=== PATIENT | male | born 1955 | race Asian ===

== ENCOUNTER → 2024-10-09 | Day surgery (SDC) | payer MEDICARE, MEDICAID, SELFPAY ==
--- NOTE | 2024-10-08 06:22 | EKG_ITS ---
[facility] Test Date: 2024-10-08 Pat Name: MAGGIE GOODWIN Department: Room: - Gender: Male Line Producer: HALINA : 1955 Requested By: Denny Haider Order Number: [id number] Reading MD: Denny Haider Measurements Intervals [place] Rate: 65 P: 68 MT: 168 QRS: 71 QRSD: 91 T: 55 QT: 346 QTc: 360 Interpretive Statements SINUS RHYTHM No previous ECG available for comparison /store/S0/[id number]/ecg/[id number].pdf
[2024-10-08 09:17] VITALS: BMI 30.2
[2024-10-08 09:42] LABS: Collection Type, Urine Clean Catch
[2024-10-08 10:00] LABS: Basophils # (Auto) 0.1 Thou/mm3 (0.0-0.2); Basophils % (Auto) 1 % (0-2.5); Eosinophils # (Auto) 0.3 Thou/mm3 (0.0-0.5); Eosinophils % (Auto) 5 % (0-10); Hematocrit 38.6 % (41.0-53.0); Hemoglobin 14.1 g/dL (13.5-16.0); Immature Granulocytes % (Auto) 2 % (0-0); Immature Granulocytes Auto 0.13 Thou/mm3 (0.00-0.00); Lymphocytes # (Auto) 1.9 Thou/mm3 (1.0-4.8); Lymphocytes % (Auto) 26 % (10-50); Mean Corpuscular HGB Conc 36.5 g/dl (31.0-37.0); Mean Corpuscular Hemoglobin 32.5 pg (25.0-35.0); Mean Corpuscular Volume 89 fL (80-100); Monocytes # (Auto) 0.7 Thou/mm3 (0.0-0.8); Monocytes % (Auto) 9 % (0-12); Neutrophils # (Auto) 4.3 Thou/mm3 (1.8-7.7); Neutrophils % (Auto) 58 % (37-80); Nucleated Red Blood Cell % 0 /100 WBC (0); Platelet Count 172 Thou/mm3 (140-440); RDW Standard Deviation 41.1 fL (35.1-43.9); Red Blood Count 4.34 Miln/mm3 (4.50-5.90); White Blood Count 7.5 Thou/mm3 (3.8-10.6)
[2024-10-08 10:01] LABS: Bilirubin,Urine Negative (Negative); Blood,Urine Negative (Negative); Clarity,Urine Clear (Clear/Hazy); Color,Urine Yellow (Lt Yel-Yel); Glucose, Urine Negative (Negative); Hyaline Casts,Urine < 1 /hpf (0-1); Ketones,Urine Negative (Negative); Leukocyte Esterase,Urine Negative (Negative); Nitrite,Urine Negative (Negative); Protein,Urine 2+ (Neg - Trace); RBC,Urine 3 /hpf (0-3); Specific Gravity,Urine 1.022 (1.001-1.035); Squamous Epithelial Cell,Urine < 1 /hpf (0-5); Urobilinogen,Urine Negative mg/dL (0.0-1.0); WBC,Urine 1 /hpf (0-5)
[2024-10-08 10:21] LABS: Alanine Aminotransferase 33 U/L (10-49); Albumin, Serum 4.5 gm/dL (3.4-4.8); Albumin/Globulin Ratio 1.7 (1.2-2.2); Alkaline Phosphatase 64 U/L (46-116); Anion Gap 12 (7-16); Aspartate Amino Transferase 35 U/L (0-34); BUN/Creatinine Ratio 11 Ratio (12-20); Bilirubin,Total 0.5 mg/dL (0.3-1.2); Blood Urea Nitrogen 13 mg/dL (9-23); Calcium 8.9 mg/dL (8.3-10.6); Calcium (Corrected) 8.9 mg/dL (8.5-10.1); Carbon Dioxide 23.4 mMol/L (20.0-31.0); Chloride 106 mMol/L (98-107); Creatinine (Component) 1.2 mg/dL (0.6-1.3); Estimated Creatinine Clearance 53.4 mL/min (>60); Globulin 2.6 gm/dL (2.3-3.5); Glucose 155 mg/dL (74-106); Osmolality,Calculated 284 (275-295); Potassium 4.1 mMol/L (3.4-5.1); Sodium 141 mMol/L (136-145); Total Protein 7.1 gm/dL (5.7-8.2); eGFR > 60 See Note
--- NOTE | 2024-10-08 10:38 | ESHP_ITS ---
RE: CHRISTA SERRANO : 1955 DATE OF ADMISSION: 10/09/2024 HISTORY OF PRESENT ILLNESS: The patient is a 68-year-old gentleman with elevated PSA of 5.2. He has nocturia, fair urinary stream. No burning in the urine or no blood in the urine. PAST SURGICAL HISTORY: None. PAST MEDICAL HISTORY: He had two strokes in the past. He has a history of diabetes mellitus and history of hypertension. SOCIAL HISTORY: He has 1 child. HOME MEDICATIONS: He takes; 1. Metoprolol. 2. Nifedipine. 3. Januvia. 4. Aspirin. 5. Metformin. 6. Statin medication. ALLERGIES: NONE KNOWN. PHYSICAL EXAMINATION: HEENT: Normal. NECK: Supple. LUNGS: Clear. CARDIOVASCULAR: Heart sounds are normal. ABDOMEN: Soft without any organomegaly. No guarding. No rigidity. EXTREMITIES: Normal. GENITOURINARY: Phallus is normal. Testes are down in the scrotum. RECTAL: Moderately enlarged prostate with right-sided mildly firm prostate. IMPRESSION: 1. Prostatism. 2. Prostatic obstruction. 3. Elevated PSA of 5.2. PLAN: Cystoscopy. Transrectal prostatic ultrasound with ultrasound-guided prostatic needle biopsy. Planned procedure, risks and complications have been discussed with the patient. The patient has understood them and agreed to proceed. DT: 09:58:36 TT: 10:37:00 Ref: [id number] - TID: [id number]
--- NOTE | 2024-10-08 13:30 | SUR.PREOP ---
Pt notified to come in tomorrow at 0800 for biopsy.
[2024-10-09 08:21] VITALS: BP 144/79; PULSE 80; RESP 16; TEMP 36.8; O2SAT 96; BMI 29.8
== END | disposition home or self-care (01) ==
LOC: S2EX 08:05
PROVIDERS: Anesthesiology; PCP Internal Medicine Hospice and Palliative Medicine; Referring Provider Surgery; Visit Provider Surgery
DX: N40.1 Benign prostatic hyperplasia with lower urinary tract symptoms (principal); R97.20 Elevated prostate specific antigen [PSA]; Z53.9 Procedure and treatment not carried out, unspecified reason
CPT/HCPCS: 52281; 36415; 80053; 81001; 85025; 93005

== ENCOUNTER 2024-11-03 09:00 | Day surgery (SDC) | payer MEDICARE, MEDICAID, SELFPAY ==
[2024-11-02 10:27] VITALS: BMI 29.6
[2024-11-02 10:58] LABS: Collection Type, Urine Clean Catch
[2024-11-02 11:40] LABS: Basophils # (Auto) 0.1 Thou/mm3 (0.0-0.2); Basophils % (Auto) 1 % (0-2.5); Eosinophils # (Auto) 0.2 Thou/mm3 (0.0-0.5); Eosinophils % (Auto) 4 % (0-10); Hematocrit 41.6 % (41.0-53.0); Hemoglobin 14.6 g/dL (13.5-16.0); Immature Granulocytes % (Auto) 2 % (0-0); Lymphocytes # (Auto) 1.8 Thou/mm3 (1.0-4.8); Lymphocytes % (Auto) 29 % (10-50); Mean Corpuscular HGB Conc 35.1 g/dl (31.0-37.0); Mean Corpuscular Volume 91 fL (80-100); Monocytes # (Auto) 0.6 Thou/mm3 (0.0-0.8); Monocytes % (Auto) 10 % (0-12); Neutrophils # (Auto) 3.5 Thou/mm3 (1.8-7.7); Neutrophils % (Auto) 56 % (37-80); Nucleated Red Blood Cell % 0 /100 WBC (0); Platelet Count 174 Thou/mm3 (140-440); RDW Standard Deviation 41.8 fL (35.1-43.9); Red Blood Count 4.56 Miln/mm3 (4.50-5.90); White Blood Count 6.2 Thou/mm3 (3.8-10.6)
[2024-11-02 11:43] LABS: Bilirubin,Urine Negative (Negative); Blood,Urine Negative (Negative); Clarity,Urine Clear (Clear/Hazy); Color,Urine Lt-Yellow (Lt Yel-Yel); Glucose, Urine 2+ (Negative); Hyaline Casts,Urine < 1 /hpf (0-1); Ketones,Urine Negative (Negative); Leukocyte Esterase,Urine Negative (Negative); Nitrite,Urine Negative (Negative); Protein,Urine 2+ (Neg - Trace); RBC,Urine 1 /hpf (0-3); Specific Gravity,Urine 1.021 (1.001-1.035); Squamous Epithelial Cell,Urine < 1 /hpf (0-5); Urobilinogen,Urine Negative mg/dL (0.0-1.0); WBC,Urine < 1 /hpf (0-5)
[2024-11-02 11:55] LABS: Alanine Aminotransferase 25 U/L (10-49); Albumin, Serum 4.6 gm/dL (3.4-4.8); Albumin/Globulin Ratio 1.8 (1.2-2.2); Alkaline Phosphatase 70 U/L (46-116); Anion Gap 8 (7-16); Aspartate Amino Transferase 24 U/L (0-34); BUN/Creatinine Ratio 11 Ratio (12-20); Bilirubin,Total 0.5 mg/dL (0.3-1.2); Blood Urea Nitrogen 12 mg/dL (9-23); Calcium 9.5 mg/dL (8.3-10.6); Calcium (Corrected) 9.5 mg/dL (8.5-10.1); Carbon Dioxide 26.5 mMol/L (20.0-31.0); Chloride 105 mMol/L (98-107); Creatinine (Component) 1.1 mg/dL (0.6-1.3); Globulin 2.6 gm/dL (2.3-3.5); Glucose 197 mg/dL (74-106); Osmolality,Calculated 282 (275-295); Potassium 3.8 mMol/L (3.4-5.1); Sodium 139 mMol/L (136-145); Total Protein 7.2 gm/dL (5.7-8.2); eGFR > 60 See Note
[2024-11-03] VITALS (8 sets, daily range): BP systolic 110–137; BP diastolic 72–80; PULSE 64–88; RESP 12–22; TEMP 36.3–37; O2SAT 95–100; BMI 29.6
--- NOTE | 2024-11-03 08:09 | ESHP_ITS ---
RE: CHRISTA SERRANO : 1955 DATE OF ADMISSION: 11/02/2024 HISTORY OF PRESENT ILLNESS: The patient is a 69-year-old gentleman with elevated PSA of 5.2. He has nocturia. Fair urinary stream. PREVIOUS SURGERIES: None. PAST MEDICAL HISTORY: He had 2 strokes in the past. He has history of diabetes mellitus and history of hypertension. SOCIAL HISTORY: He has 1 child. ALLERGIES: NONE KNOWN. MEDICATIONS: He takes: 1. Metoprolol. 2. Nifedipine. 3. Metformin. 4. Statin medication. 5. Januvia. 6. Aspirin. CLINICAL EXAMINATION: HEENT: Normal. NECK: Supple. LUNGS: Clear. CARDIOVASCULAR: Heart sounds are normal. ABDOMEN: Soft without any organomegaly. No guarding. No rigidity. EXTREMITIES: Normal. GENITOURINARY: Phallus is normal. Testes are down in the scrotum. RECTAL: Revealed moderately enlarged prostate with right-sided minimal firmness. IMPRESSION: Prostatism, prostatic obstruction, elevated PSA, history of diabetes mellitus, history of hypertension, and history of cerebrovascular accident before. PLAN: Cystoscopy and transrectal prostatic ultrasound with ultrasound-guided prostatic needle biopsy. Planned procedure, risks and complications have been discussed with the patient. The patient has understood them and agreed to proceed. DT: 17:08:38 TT: 18:03:00 Ref: [id number] - TID: [id number]
[2024-11-03] MEDS: RINGERS LACTATED 1000 ML 1,000 ML 20 ML IV (10:12)
--- NOTE | 2024-11-03 10:45 | XR_ITS ---
Examination: Transrectal prostate sonography Date and time: November 03, 2024 1053 hours INDICATIONS: Transrectal prostate sonography guidance for prostate biopsy in the OR by physician TECHNIQUE AND FINDINGS: Transrectal prostate sonography guidance for prostate biopsy in the OR by physician IMPRESSION: Transrectal prostate sonography guidance for prostate biopsy in the OR by physician
--- NOTE | 2024-11-03 12:15 | ESOP_ITS ---
RE: CHRISTA SERRANO : 1955 DATE OF OPERATION: 11/03/2024 PREOPERATIVE DIAGNOSES: Prostatism, prostatic obstruction, elevated PSA of 5.2. POSTOPERATIVE DIAGNOSES: Prostatism, prostatic obstruction, elevated PSA of 5.2. PROCEDURES PERFORMED: Cystoscopy, transrectal prostatic ultrasound with ultrasound-guided prostatic needle biopsy. ANESTHESIA: Monitored anesthesia by Dr. Toscano. INDICATION: The patient is a 69-year-old gentleman with elevated PSA of 5.2, nocturia with fair urinary stream. He was now scheduled to have cystoscopy and transurethral prostatic ultrasound with ultrasound-guided prostatic needle biopsy. Planned procedure, risks, and complications have been discussed with the patient. The patient understood them and agreed to proceed. DESCRIPTION OF PROCEDURE: After the patient was brought to the operating table under adequate monitored anesthesia given by Dr. Toscano, cystoscopy was then carried out in a standard fashion, which revealed adequate urethral meatus, normal-appearing urethra, moderately large bilobar prostate, which is somewhat vascular. Scope was introduced into the bladder. Residual urine 2 ounces, yellow and clear. There are no intravesical stones or tumors. Ureteral orifices were found to be normal in position and appearance. Scope was withdrawn. The urethra was dilated. The patient was then turned in left lateral position. Rectal examination revealed moderately enlarged prostate with some firmness on the right prostatic lobe. Transrectal prostatic ultrasound was carried out. Biopsies were obtained from both lobes. Using ultrasound guidance, prostatic volume was measured at 76 cubic centimeters. The patient tolerated the entire procedure well and left the room in good condition. DT: 11:24:01 TT: 12:14:00 Ref: [id number] - TID: [id number]
--- NOTE | 2024-11-03 13:04 | SUR.PHASEII ---
1110: Pt received in [facility] via gurney. Report from Jon CUENCA and Dr. Jordan. Pt obtunded. Is arousable with brief eye opening. Resp even, unlabored. VS stable. No complaints of pain. 1140: Pt remains very groggy. Is arousable then drifts back to sleep. Resp even, unlabored. VS stable. Denies pain. 1200: Pt more awake, alert. VS stable. Denies pain. Sitting up tolerating po fluids with no difficulty swallowing and no n/v. 1220: Pt fully awake, oriented x3. VS stable. Denies pain. Pt dressed and assisted to restroom. Ambulation steady. Pt voided pale pink urine. Pt and stated understanding of discharge instructions. Pt discharged from [facility] in stable condition.
== END 2024-11-03 12:20 | disposition home or self-care (01) ==
PROVIDERS: Anesthesiology; PCP Internal Medicine Hospice and Palliative Medicine; Referring Provider Surgery; Visit Provider Surgery
PROC: (CPT 55700; 2024-11-03 11:15)
DX: N40.1 Benign prostatic hyperplasia with lower urinary tract symptoms (principal); E11.9 Type 2 diabetes mellitus without complications; I10 Essential (primary) hypertension; Z86.73 Personal history of transient ischemic attack (TIA), and cerebral infarction without residual deficits; N41.1 Chronic prostatitis
CPT/HCPCS: 52281; 55700; 36415; 76942; 80053; 81001; 85025; 87086; A4217; A4649; J0694; J2250; J2704; J3010; J7120